=== PATIENT | female | born 1975 | race Hispanic/Latino ===

== ENCOUNTER 2017-10-07 12:29 | Outpatient (CLI) | payer BC ==
[2017-10-07 14:26] LABS: #Basophils 0.1 thou/uL (0.0-0.2); #Eosinphils 0.1 thou/uL (0.0-0.7); #Lymphocytes 2.8 thou/uL (1.20-3.40); #Monocytes 0.4 thou/uL (0.11-0.59); #Neutrophils 5.5 thou/uL (1.40-6.50); %Basophils 0.8 % (0.0-1.0); %Eosinophils 0.6 % (0.0-10.0); %Lymphocytes 31.9 % (21.0-51.0); %Monocytes 4.8 % (0.0-10.0); %Neutrophils 61.9 % (42.0-75.0); Mean Corpuscular HGB CONC 33.7 g/dL (32.0-36.0); Mean Corpuscular Hemoglobin 29.2 pg (27.0-31.0); Mean Corpuscular Volume 86.7 fL (78.0-98.0); Mean Platelet Volume 7.5 fL (7.4-10.4); Platelet Count 342 thou/uL (130-400); RBC Distribution Width 13.4 % (11.5-14.5); Red Blood Cell (RBC) Count 4.78 mill/uL (4.20-5.40); White Blood Cell (WBC) Count 8.9 thou/uL (4.8-10.8)
[2017-10-07 14:30] LABS: Bilirubin Negative (Negative); Blood, Urine Negative (Negative); Clarity CLEAR (Clear); Glucose, Urine (Dipstick) Negative (Negative); Leukocyte Small (Negative); Nitrite Negative (Negative); Protein, Urine (Dipstick) Negative (Neg-Trace); Specific Gravity, Urine 1.022 (1.002-1.036)
[2017-10-07 14:32] LABS: BHCG - Serum Negative (NEGATIVE)
[2017-10-07 14:33] LABS: Pregs Control Background? CLEAR/WHITE (CLR/WHITE); Pregs Control Bar Appear? YES (CONTROL BAR)
[2017-10-07 14:46] LABS: Anion Gap 11 mmol/L (10-20); BUN (Urea Nitrogen) 8 mg/dL (7.0-18.7); Calc. Creatinine Clearance 0 mL/min (70-130); Calcium 9.3 mg/dL (7.8-10.44); Carbon Dioxide 28 mmol/L (22-29); Chloride 102 mmol/L (98-107); Estimated GFR-MDRD Greater than 90; Glucose 156 mg/dL (70-105); Potassium 3.3 mmol/L (3.5-5.1); Sodium 138 mmol/L (136-145)
[2017-10-07 14:57] LABS: Bacteria/HPF Rare-Few HPF (None Seen); Hyaline Casts/LPF 0-3 HYALINE CAST LPF (0-3 Hyaline); Squamous Epithelial 0-3 HPF (0-3); WBC/HPF 0-3 HPF (0-3)
[2017-10-07 15:01] LABS: RBC/HPF None Seen HPF (0-3)
== END 2017-10-07 12:30 | disposition home or self-care (01) ==
LOC: LABBT 12:29
PROVIDERS: ATTEND Orthopaedic Surgery Hand Surgery
DX: Z01.818 Encounter for other preprocedural examination (principal); M19.032 Primary osteoarthritis, left wrist
CPT/HCPCS: 80048; 81001; 84703; 85025; 93005; 93010

== ENCOUNTER 2017-10-08 13:48 | Day surgery (SDC) | payer BC ==
[2017-10-07 12:51] VITALS: BMI 48.9
[~2017-10-08 13:48] MED LIST: Bupivacaine HCl 0.5%/Epinephrine 1:200,000/PF 30 ml Vial ONE; Lidocaine 1% PF 5 ML VIAL ONE; Ondansetron HCl/PF 4 MG/2 ML Vial ONE; PROPOFOL 200 MG/20 ML VIAL ONE
[2017-10-08] MEDS ORDERED: CEFAZOLIN/Water 2 GM/20 ML SYRINGE ONE (14:39)
[2017-10-08] MEDS ORDERED: Sodium Chloride 0.9% 10 ML ONE (15:26)
[2017-10-08] MEDS ORDERED: Bacitracin Zinc Ointment 30 gm TUBE ONE (15:27)
[2017-10-08] MEDS ORDERED: Thrombin 5000 UNITS/5 ML VIAL ONE (15:27)
[2017-10-08] MEDS ORDERED: Midazolam HCl 2 mg/2 ml Vial ONE (15:59)
[2017-10-08] MEDS ORDERED: Fentanyl 100 MCG/2 ML VIAL ONE ×2 (15:59→16:42)
[2017-10-08] MEDS ORDERED: Ketorolac Tromethamine 30 MG/ML VIAL ONE (19:57)
--- NOTE | 2017-10-08 20:07 | RAD ---
RADIOGRAPH LEFT WRIST 3 VIEWS: DATE: 10/08/17 TIME: 4:04 p.m. Submitted for dictation approximately 7:37 p.m. HISTORY: 42-year-old female with left wrist pain. COMPARISON: None. FINDINGS: Three small field of views fluoroscopic spot images obtained with C-arm with intrinsically low image resolution. First frontal view image demonstrates tissue retractors over the carpal bones, and a mylene ear metallic instrument distal tip overlying the scaphoid. Next lateral and frontal views demonstrate a total of four partially threaded screws, orthogonal to each other, overlying the lunate, triquetru m, capitate, and hamate. The scaphoid is absent on these last two images. IMPRESSION: 1. Ongoing left scaphoidectomy. 2. Ongoing arthrodesis of many of the carpal bones. POS: DANUTA
--- NOTE | 2017-10-09 09:17 | OP ---
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 PROCEDURES PERFORMED: 1. Open capitate bone graft. 2. C-arm supervision 2 hours by surgeon intraop. 3. Scaphoid excision with 4-corner arthrodesis. 4. Major bone graft. SPECIMEN REMOVED: Scaphoid. ESTIMATED BLOOD LOSS: 25 mL. TOURNIQUET TIME: 110 minutes. FINDINGS: capitate with avascular necrosis with collapse. Scaphoid cyst with osteoarthritis, scaphocapitate joints and marked mid carpal osteoarthritis involving the capitolunate. The hamate to triquetrum and the hamate capitate region sparing the ulna triquetral and the lunate to radius joint . ANESTHESIA: General LMA technique augmented by preoperative axillary block, which was excellent duri ng the procedure. ESTIMATED BLOOD LOSS: 25 mL. TOURNIQUET TIME: 110 minutes. DESCRIPTION OF PROCEDURE: After successful anesthesia listed above including the general during the procedure, the patient's limb was prepped and draped. Tourniquet was applied high in the arm and the limb was exsanguinated with the 250 mmHg pressure with tourniquet well-padded, because of the patien t's arm dimensions and size. We then made a zigzag incision centered beginning over the Adenike's tubercle portion distal to the mi d long finger metacarpal level was carried through the skin and subcutaneous tissues were visualized. Superficial ulna, superficial radial nerve, and ulnar branches protecting them. We then entered th e third dorsal compartment, visualized the extensor pollicis longus protected, but not entering this compartment and then made an ulnar-based capsulotomy exposing the mid carpal joint and the radiocarpa l joint. It was here that the findings listed above were found which included a cyst in the mid radi al aspect of the capitate that was approximately 5 mm, complete denudation of the chondral surface of the capitate with the lunate, 40% lunate chondral loss, 25% inebriated bone formation over the hamat e to the triquetrum, but intact chondral surfaces at the lunate or triquetrum and the hamate capitate region. We then visualized the scaphoid, placed the K-wire to confirm where the scaphoid and then I excised the scaphoid to perform a scaphoid excision. Next, we were able to take the scaphoid to the back table and found it had cystic changes in it as well where only approximately a third of it had bone graft that could be used for the fusion mass. We now used a combination of neuro curettes, bur, and a rongeur to achieve subchondral bone exposure at the surfaces of the capitate, but the capitate was quite shortened, for this capitolunate articulation, the lunate side of the lunate triquet ral joint, triquetral side of the same joint, and the entire hamate both sides of it at the mid carpa l to include the hamate capitate and hamate of triquetral region. Once we had done this to the point where we had soft cancellous bone, we then placed bone graft gently and to allow for correcti on of any stability in the sagittal plane at the lunate. These joint was pinned with appropriate wir es in position, we checked position and then we passed screws over them individually first from the c apitate to the lunate over guidewire after we also placed bone graft into the debrided cavity of the cyst. Avoiding any screw fixation the screws were slightly more ulnar than usual. We then placed a similar screw over the hamate to triquetral joint with bone graft in place. We then finished the preparation of the cancellous bone between the hamate capitate and the lunotriqu etral, placing the cancellous chips here, and then from the ulnar aspect making a small hole in the E CU sheath repair screws here. This allowed for excellent coaptation of the mid carpal joint, we achi eved a 4-corner stability and all four bones moved as one. We irrigated and inspected the radiocarpa l and ulnocarpal joints. There was no evidence of tears and there was no bone graft left in the join t. Tourniquet was deflated at 110 minutes. We obtained hemostasis. We then closed the capsule back to itself using interrupted #1 Ethibond in a [id number] pattern. Then, we closed the retinaculum w ith a 2-0 Vicryl in interrupted [id number] pattern. Subcutaneous closed with 3-0 Monocryl and th e skin was reapproximated and the epidermal layer with 4-0 nylon interrupted mattress pattern. The p atient left the operating room with a bulky dressing applied, bacitracin, Adaptic, and a sugar tong s plint. There was no evidence of anesthetic or operative complication.
== END 2017-10-08 20:57 | disposition home or self-care (01) ==
LOC: SDC 13:48
PROVIDERS: ATTEND Orthopaedic Surgery Hand Surgery
PROC: 0RGP07Z Fusion of Left Wrist Joint with Autologous Tissue Substitute, Open Approach (ICD-10-PCS; principal; 2017-10-08)
DX: M19.032 Primary osteoarthritis, left wrist (principal); E66.9 Obesity, unspecified; F31.9 Bipolar disorder, unspecified; I10 Essential (primary) hypertension; E78.5 Hyperlipidemia, unspecified; F17.210 Nicotine dependence, cigarettes, uncomplicated; Z79.899 Other long term (current) drug therapy; Z88.8 Allergy status to other drugs, medicaments and biological substances; Z68.42 Body mass index [BMI] 45.0-49.9, adult
CPT/HCPCS: 76001; 96372; A4216; C1713; J1885; J2250; J3010; J3490

== ENCOUNTER 2017-12-26 09:40 | Outpatient (CLI) | payer BC ==
[2017-12-26 11:23] LABS: #Basophils 0.1 thou/uL (0.0-0.2); #Eosinphils 0.1 thou/uL (0.0-0.7); #Monocytes 0.4 thou/uL (0.11-0.59); #Neutrophils 5.4 thou/uL (1.40-6.50); %Basophils 1.3 % (0.0-1.0); %Eosinophils 1.1 % (0.0-10.0); %Monocytes 4.7 % (0.0-10.0); %Neutrophils 59.9 % (42.0-75.0); Hemoglobin 13.5 g/dL (12.0-16.0); Mean Corpuscular HGB CONC 32.9 g/dL (32.0-36.0); Mean Corpuscular Volume 88.3 fL (78.0-98.0); Mean Platelet Volume 7.9 fL (7.4-10.4); Platelet Count 399 thou/uL (130-400); RBC Distribution Width 13.9 % (11.5-14.5); Red Blood Cell (RBC) Count 4.67 mill/uL (4.20-5.40); White Blood Cell (WBC) Count 9.1 thou/uL (4.8-10.8)
[2017-12-26 11:27] LABS: Bilirubin Negative (Negative); Blood, Urine Negative (Negative); Clarity CLEAR (Clear); Glucose, Urine (Dipstick) Negative (Negative); Leukocyte Negative (Negative); Nitrite Negative (Negative); Protein, Urine (Dipstick) Negative (Neg-Trace); Specific Gravity, Urine 1.022 (1.002-1.036); pH, Urine 7.5 (5.0-9.0)
[2017-12-26 11:30] LABS: Bacteria/HPF None Seen HPF (None Seen); Hyaline Casts/LPF 0-3 HYALINE CAST LPF (0-3 Hyaline); Pathc Cast-AUWi Flag 0.58 (0-2.49); Squamous Epithelial 0-3 HPF (0-3); WBC/HPF 0-3 HPF (0-3)
== END 2017-12-26 09:41 | disposition home or self-care (01) ==
LOC: LABBT 09:40
PROVIDERS: ATTEND Orthopaedic Surgery Hand Surgery
DX: Z01.812 Encounter for preprocedural laboratory examination (principal); Z47.2 Encounter for removal of internal fixation device
CPT/HCPCS: 81001; 85025; 85652

== ENCOUNTER 2017-12-31 06:18 | Day surgery (SDC) | payer BC ==
[2017-12-26 10:03] VITALS: BMI 47.5
[2017-12-31] MEDS ORDERED: CEFAZOLIN/Water 2 GM/20 ML SYRINGE ONE (06:41)
[2017-12-31] MEDS ORDERED: Midazolam HCl 2 mg/2 ml Vial ONE (07:22)
[2017-12-31] MEDS ORDERED: Bupivacaine PF 0.5% 30 ML VIAL ONE (07:47)
[2017-12-31] MEDS ORDERED: Bacitracin Zinc Ointment 30 gm TUBE ONE (07:47)
[2017-12-31] MEDS ORDERED: Sodium Chloride 0.9% 10 ML ONE (07:49)
[2017-12-31] MEDS ORDERED: Fentanyl 100 MCG/2 ML VIAL ONE (07:50)
[2017-12-31] MEDS ORDERED: Ketorolac Tromethamine 30 MG/ML VIAL ONE (10:13)
--- NOTE | 2017-12-31 10:48 | RAD ---
LEFT HAND 3 VIEWS: HISTORY: Hardware removal. FINDINGS: A series of C-arm views was obtained mainly related to the left wrist. These show the scaphoid has b een removed. Screw placement is seen across the carpal bones bridging the capitate, lunate, hamate, and triquetrum on these images. IMPRESSION: Postoperative changes of the left hand and wrist region. POS: ZI
--- NOTE | 2017-12-31 11:17 | OP ---
DATE OF PROCEDURE: 12/31/2017 SURGEON: Dr. Taurus Sinclair PREOPERATIVE DIAGNOSES: Left protruding screw sets, screws were ____ after fusion, capitolunate join t (only 3-1/2 months since procedure). POSTOPERATIVE DIAGNOSES: Left protruding screw sets, screws were ____ after fusion, capitolunate ivette nt (only 3-1/2 months since procedure). FINDINGS: Solid fusion mass capitolunate region. PROCEDURE PERFORMED: 1. Removal of previous screw. 2. Application of a second screw, compression type 2.4 mm Synthes at a different angle/dislocation b [facility] bones. 3. C-arm supervision was also used. TOURNIQUET TIME: 56 minutes. ESTIMATED BLOOD LOSS: 10 mL. INJECTABLES: 20 mL 0.5% Marcaine, 10 given before incision and 10 after. INDICATION: The patient had slowly forming fusion mass and has a fusion mass condensed, screw protru chano reach 1.5 mm into the radial lunate joint which was unacceptable, so we decided to remove it bef ore it became more of a problem. She was counseled appropriately. ANESTHESIA: [place] Anesthesia, general augmented by the Marcaine as described above. DESCRIPTION OF PROCEDURE: After successful general LMA technique, the limb was prepped and draped. The patient then had timeout done in the field. The C-arm was brought into the field fully draped. After prepping, we identified the site where the screw was located and that allowed us to use a minim al portion of her previous incision as possible. Thus, using only the central third of her incision after inflating the tourniquet to 250 mmHg pressure and limb exsanguination, we made an incision feli g her previous zigzag incision centered over the screw, dissected down, released the retinaculum, bro ught the C-arm back onto the field. Finally dislocation through the capsule, made a 6-7 mm hole in t he capsule down to the screw. Initially, the screw was difficult to remove, so we had to place cannu lated wire into the capitate and then once we confirmed radiographically inside the wire began to rem ove the screw. We saw that the cavity of the previous screw was patulous, so we could not use this c avity even though the fusion mass appeared to be solid. Then, moving 5 mm more radial, and [facility] palmar into the lunate, we drilled and placed a guidewire appropriately, drilled it with a 2-0 mm drill bit across the fusion mass and then placed the screw. The fusion mass did not move wha tsoever, neither did the lunate. We had excellent fixation of the capitate and this screw was 4 mm s horter than the measured distance so it was placed in the center of the lunate in both frontal and sa gittal plane to help prevent later subsidence. There was no fracture seen, no defects. Tourniquet was deflated. The capsule was closed at the 7 mm incision over the proximal capitate with interrupted #2 Ethibond with OS-4 needle. We then obtained hemostasis, closed the retinaculum with interrupted 2-0 nylon in a [id number]-im-[id number] pattern. Subcuta neous closure with excellent hemostasis was accomplished with interrupted 4-0 Monocryl and a 4-0 nylo n simple stitch was used to close the epidermis. A final 10 mg of 0.5% Marcaine without epinephrine was given per incision technique. Bulky dressing was applied and a short arm splint and the patient left the operating room with the C-arm showing excellent position of the joint fusion mass and the im plants.
[2017-12-31] MEDS ORDERED: Lidocaine 1% PF 5 ML VIAL ONE (13:54)
[2017-12-31] MEDS ORDERED: PROPOFOL 200 MG/20 ML VIAL ONE (13:54)
[2017-12-31] MEDS ORDERED: Dexamethasone 20 MG/5 ML VIAL ONE (13:54)
[2017-12-31] MEDS ORDERED: Ondansetron HCl/PF 4 MG/2 ML Vial ONE (13:54)
== END 2017-12-31 11:28 | disposition home or self-care (01) ==
LOC: SDC 06:18
PROVIDERS: ATTEND Orthopaedic Surgery Hand Surgery
PROC: 0RRP0JZ Replacement of Left Wrist Joint with Synthetic Substitute, Open Approach (ICD-10-PCS; principal; 2017-12-31)
DX: T84.193A Other mechanical complication of internal fixation device of bone of left forearm, initial encounter (principal); I10 Essential (primary) hypertension; E78.5 Hyperlipidemia, unspecified; E66.9 Obesity, unspecified; Z79.82 Long term (current) use of aspirin; Z79.84 Long term (current) use of oral hypoglycemic drugs; Z79.899 Other long term (current) drug therapy; Z68.42 Body mass index [BMI] 45.0-49.9, adult; Z88.8 Allergy status to other drugs, medicaments and biological substances
CPT/HCPCS: 76001; 96372; 96374; A4216; C1713; J1100; J1885; J2001; J2250; J2405; J2704; J3010; J3490; S0020

== ENCOUNTER 2021-06-12 09:17 | Outpatient (CLI) | payer BC | END 2021-06-12 09:18 | disposition home or self-care (01) | LOC: BICMAMMO 09:17 | PROVIDERS: ATTEND Surgery | DX: N64.52 Nipple discharge (principal) | CPT/HCPCS: 77066; G0279 ==

== ENCOUNTER 2024-12-21 10:10 | Outpatient (CLI) | payer BC | END 2024-12-21 10:11 | disposition home or self-care (01) | LOC: BICRAD 10:10 | PROVIDERS: ATTEND Family Medicine | DX: M25.512 Pain in left shoulder (principal) ==